=== PATIENT | male | born 1935 | race Caucasian/White ===

== ENCOUNTER → 2018-02-07 | Outpatient (CLI) | payer MEDICARE, BC ==
[~2018-02-07] MED LIST: CALTRATE 600 +1 EAC1 PO; CHILD ASPIRIN81 M1 PO; Ecotrin PO; FINASTERIDE5 MG PO; INDERAL40 MG PO; KAPIDEX60 MG PO; LISINOPRIL2.5 MG PO; METFORMIN HCL1000 MG PO; Magnesium PO; ONCOVITE PO; PANTOPRAZOLE SO40 MG PO; PRAVASTATIN SOD40 MG PO; Pravachol PO; UROXATRAL10 MG PO; Uroxatral PO; Vitamin B Complex PO
== END | disposition home or self-care (01) ==
LOC: CDC 10:03
DX: Z01.810 Encounter for preprocedural cardiovascular examination (principal); H25.12 Age-related nuclear cataract, left eye; Z95.0 Presence of cardiac pacemaker
CPT/HCPCS: 93000